=== PATIENT | male | born 1985 | race Two or more races ===

== ENCOUNTER 2017-01-27 19:37 | Emergency (ER) | payer SELFPAY ==
[~2017-01-27] VITALS: Ht 185.4 cm; Wt 113.4 kg
[2017-01-27 19:40] VITALS: BP 122/80
[2017-01-27] MEDS ORDERED: TETRACAINE HCL 0.5% OPTH(EYE) SOLN 4ML EACHEYE ONE (20:15)
[2017-01-27] MEDS ORDERED: GENTAMICIN SULF 0.3% OPTH(EYE) OINT 3.5GM EACHEYE ONE (20:45)
[2017-01-27] MEDS ORDERED: FLUORESCEIN SOD 1 MG TEST STRIP EACHEYE ONE (20:45)
[2017-01-27] MEDS ORDERED: GENTAMICIN OPTH sol 0.3% 5ml EACHEYE ONE (20:45)
== END 2017-01-27 21:49 | disposition home or self-care (01) ==
LOC: ER 19:39
DX: H10.9 Unspecified conjunctivitis (principal); H57.8 Other specified disorders of eye and adnexa